=== PATIENT | male | born 1995 ===

== ENCOUNTER 2021-09-25 11:30 | Emergency (ER) | payer SELFPAY ==
[~2021-09-25] VITALS: Ht 167.6 cm; Wt 61.4 kg
[2021-09-25] MEDS ORDERED: NORCO 325 MG-51 TAB PO (14:07)
[2021-09-25 15:00] VITALS: BP 103/69; PULSE 93; TEMP 97.9
== END 2021-09-25 15:01 | disposition home or self-care (01) ==
LOC: COL.ER 11:30
DX: S52.572A Other intraarticular fracture of lower end of left radius, initial encounter for closed fracture (principal); F17.210 Nicotine dependence, cigarettes, uncomplicated; V89.2XXA Person injured in unspecified motor-vehicle accident, traffic, initial encounter